=== PATIENT | male | born 1990 | race Caucasian/White ===

== ENCOUNTER 2016-08-01 08:56 | Emergency (ER) | payer MEDICARE, OTHER ==
[2016-08-01 09:34] LABS: BASOPHIL 0.4 % (0-2); EOSINOPHIL 1.4 % (0-5); HCT 43.9 % (42.0-52.0); HGB 15.1 g/dl (13.2-18.0); LYMPHOCYTE 15.1 % (15-48); MCH 29.2 pg (25.0-31.0); MCHC 34.4 g/dL (32.0-36.0); MCV 84.7 fL (78.0-100.0); MONOCYTE 9.1 % (0-12); MPV 11.4 fL (6.0-9.5); PLT 298 K/uL (150-400); RBC 5.18 M/uL (4.70-6.00); RDW 14.3 % (11.5-14.0); WBC 10.7 K/uL (4.0-10.5)
[2016-08-01 09:53] LABS: ALBUMIN 4.1 g/dL (3.5-5.0); BILIRUBIN - TOTAL 0.2 mg/dL (0.1-1.0); GLOBULIN (CALCULATION) 3.3 g/dL (2.2-4.2); POTASSIUM 4.1 mmol/L (3.5-5.1); TOTAL PROTEIN 7.4 g/dL (6.4-8.3)
[2016-08-01 11:10] LABS: CLARITY CLEAR (CLEAR); COLOR YELLOW (YELLOW)
[2016-08-01 11:11] LABS: BILIRUBIN NEGATIVE (NEGATIVE); BLOOD 2+ Ery/uL (NEGATIVE); GLUCOSE (U) NORMAL (NORMAL); KETONE (U) NEGATIVE (NEGATIVE); LEUKOCYTES NEGATIVE Leu/uL (NEGATIVE); NITRITE NEGATIVE (NEGATIVE); PROTEIN NEGATIVE (NEGATIVE); UROBILINOGEN 0.2 mg/dL (0.2-1.0)
== END 2016-08-01 11:50 | disposition home or self-care (01) ==
LOC: FER 08:56
PROVIDERS: Emergency Medicine
DX: N13.2 Hydronephrosis with renal and ureteral calculous obstruction (principal); I10 Essential (primary) hypertension; R19.7 Diarrhea, unspecified; Z87.442 Personal history of urinary calculi
CPT/HCPCS: 36415; 80053; 81001; 85025; J1885